=== PATIENT | male | born 1960 | race Caucasian/White ===

== ENCOUNTER 2019-10-12 06:37 | Day surgery (SDC) | payer OTHER ==
--- NOTE | 2019-10-11 15:08 | RAD REPORT ---
EXAM DESCRIPTION: RAD - Chest Pa And Lat (2 Views) - 10/11/2019 2:53 pm CLINICAL HISTORY: left heart cath Chest pain. COMPARISON: No comparisons FINDINGS: The lungs are clear. The heart is normal in size. No displaced fractures. IMPRESSION: No acute or concerning finding suspected.
[2019-10-11 15:16] LABS: Protime INR 0.96
[2019-10-11 15:18] LABS: Absolute Lymphocytes (CBC) 1.9 K/uL (0.7-4.9); Hematocrit 48.2 % (39.6-49.0); Lymphocytes % 25.8 % (15.3-44.8); MPV 10.4 fL (7.6-11.3); RBC Red Blood Cell Count 5.27 M/uL (4.33-5.43)
[2019-10-11 15:19] LABS: Potassium 4.8 mmol/L (3.5-5.1)
--- OUTSIDE RECORDS SUMMARY | 2019-10-12 06:39 | XMS REPORT | Summary of Care ---
:1960 Author Organization [facility] Address [address] [place] [address] Care Team Providers Name Role Phone Tor Lorenzo Primary Care Provider Reason for Visit Reason Comments Follow-up Diabetes Mellitus II Encounter Details Date Type Department Care Team Description 09/17/2019 Office Visit [facility] Diana White, Type 2 diabetes mellitus with complication, with long-term current use of insulin (Primary Dx); Endocrinology- MD Dyslipidemia; [address] Essential hypertension Professional Office [address] [address] [address] [place] [address] Allergies No Known Allergiesdocumented as of this encounter (statuses as of 09/17/2019) Medications Medication Sig Dispensed Refills Start Date End Date Status lancets (FREESTYLE Use as 200 Each 1 10/08/2016 Active LANCETS) 28 gauge directedSHAWNEE, Misc DX:E11.9 blood sugar Use as 300 Strip 3 01/05/2017 Active diagnostic directed (FREESTYLE LITE STRIPS) stripIndications: Type 2 diabetes mellitus without complication, without long-term current use of insulin Blood-Glucose Meter Use as 1 Kit 1 01/05/2017 Active (FREESTYLE LITE directed METER) KitIndications: Type 2 diabetes mellitus without complication, without long-term current use of insulin ramipril 10 mg Take 1 capsule 180 capsule 3 10/09/2018 Active capsuleIndications: by mouth 2 Essential (two) times hypertension daily. rosuvastatin Take 1 tablet 90 tablet 3 10/09/2018 Active (CRESTOR) 20 mg by mouth at tabletIndications: bedtime. Dyslipidemia sitagliptan-metform Take 1 tablet 180 tablet 3 03/21/2019 Active in (JANUMET) by mouth 2 50-1,000 mg per (two) times tabletIndications: daily with Type 2 diabetes meals. mellitus with complication, with long-term current use of insulin empagliflozin Take 1 90 tablet 3 03/21/2019 Active (JARDIANCE) 25 mg TAB-CAP/M2 by TabIndications: mouth daily. Type 2 diabetes mellitus with complication, with long-term current use of insulin FREESTYLE CLAYTON 14 1 Each daily. 1 Each 0 06/26/2019 Active DAY READER Misc DX:E11.8 flash glucose 1 Device every 6 Kit 3 09/17/2019 Active sensor (FREESTYLE 14 (fourteen) CLAYTON 14 DAY days. SENSOR) KitIndications: Type 2 diabetes mellitus with complication, with long-term current use of insulin FREESTYLE CLAYTON 14 1 Each every 2 Kit 5 06/26/2019 Discontinued DAY SENSOR Kit 14 (fourteen) 0 days. DX:E11.8 documented as of this encounter (statuses as of 09/17/2019) Active Problems Problem Noted Date Type 2 diabetes mellitus with complication, with long-term current use of insulin Vitamin D deficiency 02/09/2016 Essential hypertension 02/09/2016 HLD (hyperlipidemia) 02/09/2016 Metabolic syndrome X 02/09/2016 documented as of this encounter (statuses as of 09/17/2019) Social History Tobacco Use Types Packs/Day Years Used Date Never Assessed Sex Assigned at Date Recorded Not on file Job Start Date Occupation Industry Not on file Not on file Not on file Travel History Travel Start Travel End No recent travel history available. documented as of this encounter Last Filed Vital Signs Vital Sign Reading Time Taken Comments Blood Pressure 128/85 09/17/2019 11:16 AM HOPPER FEED[employer] Pulse 51 09/17/2019 11:16 AM HOPPER FEED[employer] Temperature - - Respiratory Rate 16 09/17/2019 11:16 AM HOPPER FEED[employer] Oxygen Saturation - - Inhaled Oxygen Concentration - - Weight 100.2 kg (221 lb) 09/17/2019 11:16 AM HOPPER FEED[employer] Height 182.9 cm (6') 09/17/2019 11:16 AM HOPPER FEED[employer] Body Mass Index 29.97 09/17/2019 11:16 AM HOPPER FEED[employer] documented in this encounter Progress Notes Diana White MD - 09/17/2019 11:00 AM CST chief complaint: Type 2 diabetes mellitus- follow up HPI: Taj Reeder is a 58 year old /White male who is here today for Diabetes MellitusType 2. ARABELLA was in 03/2019 with A1C at 6.8%. No major medical issues in interim. Patient was advised to continue diabetes regimen without changes. He sates that he forgot his freestyle clayton system as he ran out of them recently. T2DM history: Diagnosed with A1C > 14 in 10/2015, which has improved to 7s range in 2018 and stayed stable. Complications: hx of microalbuminuria which is now resolved. +CAD. Has hypertension and dyslipidemiaas well. DM regimen: Janumet 50-1000 mg bid, Jardiance 25 mg. Reports compliance Glucose readings: At goal 115-135 most time per recall . He did not bring log to be reviewed today Hypoglycemia: None Patient is compliant with diet and exercise Hypertension: Stopped Valsartan 320 mg due to recall. Takes ramipril 10 mg BID BP staying 140's systolic since then Proteinuria: Resolved in 06/2016. Positive urine proteins in 10/2015 Dyslipidemia: Reports compliance with rosuvastatin 20 mg. Denied side effects DIABETIC HEALTH MAINTENANCE Last Ophthalmology visit was 04/2019- no retinopathy. Patient on MARY/ARB therapy - Yes Patient on ASA therapy - no Patient on Statin/Fibrate therapy - Yes. Patient instructed about daily feet exams, last sensation exam was 09/2019 Patient has received Nutrition/Diet/Diabetes Education on 10/2015, and Referred Current Outpatient Medications: flash glucose sensor (FREESTYLE CLAYTON 14 DAY SENSOR) Kit, 1 Device every 14 (fourteen) days., Disp: 6 Kit, Rfl: 3 empagliflozin (JARDIANCE) 25 mg Tab, Take 1 TAB-CAP/M2 by mouth daily., Disp: 90 tablet, Rfl: 3 sitagliptan-metformin (JANUMET) 50-1,000 mg per tablet, Take 1 tablet by mouth 2 (two) times daily with meals., Disp: 180 tablet, Rfl: 3 FREESTYLE CLAYTON 14 DAY READER Misc, 1 Each daily. DX:E11.8, Disp: 1 Each, Rfl: 0 ramipril 10 mg capsule, Take 1 capsule by mouth 2 (two) times daily., Disp : 180 capsule, Rfl: 3 rosuvastatin (CRESTOR) 20 mg tablet, Take 1 tablet by mouth at bedtime., Disp: 90 tablet, Rfl: 3 blood sugar diagnostic (FREESTYLE LITE STRIPS) strip, Use as directed, Disp : 300 Strip, Rfl: 3 Blood-Glucose Meter (FREESTYLE LITE METER) Kit, Use as directed, Disp: 1 Kit, Rfl: 1 lancets (FREESTYLE LANCETS) 28 gauge Misc, Use as directed, TID, DX:E11.9, Disp: 200 Each, Rfl:1 HISTORY No past medical history on file. No past surgical history on file. No family history on file. Social History Socioeconomic History Marital status: Spouse name: Not on file Number of children: Not on file Years of education: Not on file Highest education level: Not on file Occupational History Not on file Social Needs Financial resource strain: Not on file Food insecurity: Worry: Not on file Inability: Not on file Transportation needs: Medical: Not on file Non-medical: Not on file Tobacco Use Smoking status: Not on file Substance and Sexual Activity Alcohol use: Not on file Drug use: Not on file Sexual activity: Not on file Lifestyle Physical activity: Days per week: Not on file Minutes per session: Not on file Stress: Not on file Relationships Social connections: Talks on phone: Not on file Gets together: Not on file Attends shinto service: Not on file Active member of club or organization: Not on file Attends meetings of clubs or organizations: Not on file Relationship status: Not on file Intimate partner violence: Fear of current or ex partner: Not on file Emotionally abused: Not on file Physically abused: Not on file Forced sexual activity: Not on file Other Topics Concern Not on file Social History Narrative Not on file REVIEW OF SYSTEMS Constitutional: weight stable, denies fatigue and hair loss Eyes: denies blurry vision, denies diplopia and denies pain. Neck: denies pain, denies swollen glands Cardiovascular: denies chest pain , denies irregular pulse and denies palpitations. Respiratory: denies dyspnea on exertion and denies shortness of breath. Gastrointestinal: denies abdominal pain, denies constipation and denies diarrhea. Genitourinary: denies burning and denies dysuria. Musculoskeletal: denies back pain, denies muscle pain and denies weakness. Skin: denies dry skin and denies hair changes. Neuro: denies numbness , denies tingling and denies tremor. Psych: negative. Endocrine: denies intolerance to cold or heat, denies polydipsia, denies polyphagia and denies polyuria. PHYSICAL EXAM Vitals: 09/17/19 1116 BP: 128/85 BP Location: Left arm Patient Position: Sitting BP CUFF SIZE: Adult Large Pulse: 51 Resp: 16 Weight: 221 lb (100.2 kg) Height: 6' (1.829 m) General: alert, oriented times three, no apparent distress, appearing age appropriate. Skin: skin color and turgor are normal Head: normocephalic, no masses, lesions, tenderness or abnormalities. Eyes: anicteric sclera, pupils are equally round and reactive to light. Neck: +acanthosis nigricans Thyroid: normal size and consistency to palaption Lungs: good diaphragmatic excursion, lungs clear to auscultation bilaterally. Heart: regular rate and rhythm, no murmurs, gallops or rubs. Abdomen: abdomen soft, non-tender, normal active bowel sounds, + obese. Neuro: unremarkable without focal findings. Extremities/Musculoskeletal: no cyanosis, no edema . Sensory exam of the foot is normal. Monofilament exam with sensation Right: 5/5 , Left: 5/5. callus present Ulcers Absent Peripheral pulses present 2+. DATA: No results found for: POCGLU CREATININE (mg/dL) Date Value 06/15/2017 0.80 CREATININE-Q (mg/dL) Date Value 10/28/2015 0.92 CHOL (mg/dL) Date Value 06/15/2017 128 CHOLESTEROL, TOTAL-Q (mg/dL) Date Value 10/28/2015 141 HDL CHOLESTEROL-Q (mg/dL) Date Value 10/28/2015 29 (L) HDL (mg/dL) Date Value 06/15/2017 37 (L) LDL CHOL (mg/dL) Date Value 06/15/2017 63 [id number] (mg/dL (calc)) Date Value 10/28/2015 71 TRIG (mg/dL) Date Value 06/15/2017 140 TRIGLYCERIDES-Q (mg/dL) Date Value 10/28/2015 207 (H) MICROAL/CR (ug/mmol creatinine) Date Value 06/15/2017 693 POCT HBA1C (%) Date Value 09/17/2019 7.0 (A) 03/21/2019 6.8 HEMOGLOBIN A1c-Q (% of total Hgb) Date Value 06/21/2016 7.9 (H) ASSESSMENT/PLAN ICD-10-CM ICD-9-CM 1. Type 2 diabetes mellitus with complication, with long-term current use of insulin E11.8 250.90 Z79.4 V58.67 2. Dyslipidemia E78.5 272.4 3. Essential hypertension I10 401.9 1. Type 2 diabetes mellitus with complication, with long-term current use of insulin -A1C (target=6-7%): 7.0 (10/03) --6.8(04/05)-->7%(09/2019) stable -glucose range: AM fasting at target per patient , without hypoglycemia -complication: hx of microalbuminuria -medication limitation: prefer oral medication -diet: compliant -exercise:active Plan -reinterated to check glucose daily alternating fasting and 2 hours post meals -urged compliance with diet/exercise -will continue current regimen: janumet 50-1000 BID and Jardiance 25 mg daily - Therapeutic lifestyle changes - annual labs prior to next visit Dyslipidemia Comment: No recent labs. Requested Plan: rosuvastatin (CRESTOR) 20 mg tablet, Essential hypertension BP in clinic was at target Plan Continue ramipril 10 mg capsule bid Orders Placed This Encounter Procedures POCT HEMOGLOBIN A1C TEST COMP. METABOLIC PANEL (36584) LIPID PANEL (36558)(TOTAL CHOLESTEROL, TRIGLYCERIDES, HDL) MICROALBUMIN URINE Diana White MD [employer] Endocrinology, Diabetes and Metabolism documented in this encounter Plan of Treatment Date Type Specialty Care Team Description 03/19/2020 Office Visit Endocrinology Diabetes & MajanoSally MD Metabolism [address] [place], [place] [phone] Name Type Priority Associated Diagnoses Order Schedule COMP. METABOLIC PANEL LAB Routine Type 2 diabetes mellitus Expected: 2019, (10868) with complication, with Expires: 09/16/2020 long-term current use of insulin LIPID PANEL (17866)(TOTAL LAB Routine Type 2 diabetes mellitus Expected: , CHOLESTEROL, with complication, with Expires: 09/16/2020 TRIGLYCERIDES, HDL) long-term current use of insulin MICROALBUMIN URINE LAB Routine Type 2 diabetes mellitus Expected: 2019, with complication, with Expires: 09/16/2020 long-term current use of insulin Health Maintenance Due Date Last Done Comments HEPATITIS C (HCV) SCREEN 1960 PNEUMOCOCCAL 0-64 YEARS COMBINED 1964 SERIES (1 of 1 - PPSV23) EYE EXAM 1968 DTaP,Tdap,and Td Vaccines (1 - 1969 Tdap) COLONOSCOPY 2008 Zoster Recombinant Vaccine 2008 (SHINGRIX) (1 of 2) CREATININE (SERUM) 06/15/2018 06/15/2017, 10/28/2015 LDL-C 06/15/2018 06/15/2017, 10/28/2015 URINE MICROALBUMIN 06/15/2018 06/15/2017, 06/21/2016, 10/28/2015 INFLUENZA VACCINE (#1) 2019 HgA1C 09/19/2019 03/21/2019, 10/09/2018, 03/08/2018, Additional history exists FOOT EXAM 03/21/2020 03/21/2019, 03/21/2019, 10/09/2018, Additional history exists documented as of this encounter Procedures Procedure Name Priority Date/Time Associated Diagnosis Comments POCT HEMOGLOBIN A1C Routine 09/17/2019 Type 2 diabetes Results for this TEST mellitus with procedure are in the complication, with results section. long-term current use of insulin documented in this encounter Results POCT HEMOGLOBIN A1C TEST (09/17/2019) POCT HBA1C 7.0 (A) 4 - 6 % Specimen Blood - CAPILLARY documented in this encounter Visit Diagnoses Diagnosis Type 2 diabetes mellitus with complication, with long-term current use of insulin - Primary Dyslipidemia Other and unspecified hyperlipidemia Essential hypertension Unspecified essential hypertension documented in this encounter documented as of this encounter
--- OUTSIDE RECORDS SUMMARY | 2019-10-12 06:39 | XMS REPORT | Summary of Care ---
:1960 Author Organization [facility] Address [address] [place] [address] Care Team Providers Name Role Phone Tor Lorenzo Primary Care Provider Encounter Details Date Type Department Care Team Description 09/17/2019 Letter (Out) [facility] [employer] Messages Doctor Unassigned, No [address] [facility] [place] [address] [address] [facility] [phone] [place] [address] Allergies No Known Allergiesdocumented as of this encounter (statuses as of 09/17/2019) Medications Medication Sig Dispensed Refills Start Date End Date Status lancets (FREESTYLE Use as directed, 200 Each 1 10/08/2016 Active LANCETS) 28 gauge Misc TID, DX:E11.9 blood sugar diagnostic Use as directed 300 Strip 3 01/05/2017 Active (FREESTYLE LITE STRIPS) stripIndications: Type 2 diabetes mellitus without complication, without long-term current use of insulin Blood-Glucose Meter Use as directed 1 Kit 1 01/05/2017 Active (FREESTYLE LITE METER) KitIndications: Type 2 diabetes mellitus without complication, without long-term current use of insulin ramipril 10 mg Take 1 capsule 180 capsule 3 10/09/2018 Active capsuleIndications: by mouth 2 (two) Essential hypertension times daily. rosuvastatin (CRESTOR) Take 1 tablet by 90 tablet 3 10/09/2018 Active 20 mg mouth at tabletIndications: bedtime. Dyslipidemia sitagliptan-metformin Take 1 tablet by 180 tablet 3 03/21/2019 Active (JANUMET) 50-1,000 mg mouth 2 (two) per tabletIndications: times daily with Type 2 diabetes meals. mellitus with complication, with long-term current use of insulin empagliflozin Take 1 90 tablet 3 03/21/2019 Active (JARDIANCE) 25 mg TAB-CAP/M2 by TabIndications: Type 2 mouth daily. diabetes mellitus with complication, with long-term current use of insulin FREESTYLE SALVADOR 14 DAY 1 Each daily. 1 Each 0 06/26/2019 Active READER Misc DX:E11.8 FREESTYLE SALVADOR 14 DAY 1 Each every 14 2 Kit 5 06/26/2019 Active SENSOR Kit (fourteen) days. DX:E11.8 documented as of this encounter [...] of this encounter Last Filed Vital Signs Not on filedocumented in this encounter Plan of Treatment Date Type Specialty Care Team Description 09/17/2019 Office Visit Endocrinology Diabetes & Diana White MD Arrived Metabolism [address] [place] [address] [phone] Health Maintenance Due Date Last Done Comments [...] history exists documented as of this encounter Results Not on filedocumented in this encounter Insurance Payer Benefit Plan / Group Subscriber ID Effective Dates Phone Address Type AETNA AETNA HMO GENERIC [id number] 2014-Present HMO documented as of this encounter
--- OUTSIDE RECORDS SUMMARY | 2019-10-12 06:39 | XMS REPORT | Summary of Care ---
:1960 Author Organization [facility] Address [address] [place] [address] Care Team Providers Name Role Phone Tor Lorenzo Primary Care Provider Encounter Details Date Type Department Care Team Description 03/21/2019 Orders Only [facility] Doctor Unassigned, No 301 [facility] Name [place] [phone] [place] [phone] Allergies No Known Allergiesdocumented as of this encounter (statuses as of 03/21/2019) Medications Medication Sig Dispensed Refills Start Date [...] complication, without long-term current use of insulin flash glucose scanning 1 Each daily. 1 Each 1 09/21/2017 Active reader (FREESTYLE SALVADOR READER) MiscIndications: Type 2 diabetes mellitus without complication, without long-term current use of insulin FREESTYLE SALVADOR 10 DAY USE 1 EVERY 10 10 Kit 0 09/25/2018 Active SENSOR KitIndications: DAYS Type 2 diabetes mellitus without complication, without long-term current use of insulin ramipril 10 mg Take 1 capsule 180 capsule 3 10/09/2018 Active capsuleIndications: by mouth 2 (two) Essential hypertension times daily. rosuvastatin (CRESTOR) Take 1 tablet by 90 tablet 3 10/09/2018 Active 20 mg mouth at tabletIndications: bedtime. Dyslipidemia empagliflozin Take 1 90 tablet 3 10/09/2018 Active (JARDIANCE) 25 mg TAB-CAP/M2 by TabIndications: Type 2 mouth daily. diabetes mellitus with complication, with long-term current use of insulin sitagliptan-metformin Take 1 tablet by 180 tablet 3 10/09/2018 Active (JANUMET) 50-1,000 mg mouth 2 (two) per tabletIndications: times daily with Type 2 diabetes meals. mellitus with complication, with long-term current use of insulin documented as of this encounter (statuses as of 03/21/2019) Active Problems Problem Noted Date Type 2 diabetes mellitus with complication, with long-term current use of insulin Vitamin D deficiency 02/09/2016 Essential hypertension 02/09/2016 HLD (hyperlipidemia) 02/09/2016 Metabolic syndrome X 02/09/2016 documented as of this encounter (statuses as of 03/21/2019) Social History Tobacco Use Types Packs/Day Years [...] Treatment Date Type Specialty Care Team Description 03/21/2019 Office Visit Endocrinology Diabetes & MajanoSally MD Metabolism [address] [place], [place] [phone] Health Maintenance Due Date Last Done Comments HEPATITIS C (HCV) SCREEN 1960 PNEUMOCOCCAL 0-64 YEARS COMBINED 1964 SERIES (1 of 1 - PPSV23) EYE EXAM 1968 DTaP,Tdap,and Td Vaccines (1 - 1977 Tdap) COLONOSCOPY 2008 Zoster Recombinant Vaccine 2008 (SHINGRIX) (1 of 2) CREATININE (SERUM) 06/15/2018 06/15/2017, 10/28/2015 LDL-C 06/15/2018 06/15/2017, 10/28/2015 URINE MICROALBUMIN 06/15/2018 06/15/2017, 06/21/2016, 10/28/2015 INFLUENZA VACCINE (#1) 2019 HgA1C 04/11/2019 10/09/2018, 03/08/2018, 09/21/2017, Additional history exists FOOT EXAM 10/10/2019 10/09/2018, 10/09/2018, 03/08/2018, Additional history exists documented as of this encounter Procedures Procedure Name Priority Date/Time Associated Diagnosis Comments NO SHOW OR MISSED Routine 03/21/2019 9:49 AM APPOINTMENT POLICY CDT ACKNOWLEDGEMENT documented in this encounter Results Not on filedocumented in this encounter Insurance Payer Benefit Plan / Group Subscriber ID Effective Dates Phone Address Type AETNA AETNA HMO GENERIC [id number] 2014-Present HMO documented as of this encounter
--- OUTSIDE RECORDS SUMMARY | 2019-10-12 06:39 | XMS REPORT | Summary of Care ---
:1960 Author Organization [facility] Address [address] [place] [address] Care Team Providers Name Role Phone Tor Lorenzo Primary Care Provider Reason for Visit Reason Comments Refill Request Encounter Details Date Type Department Care Team Description 03/21/2019 Refill [facility] Endocrinology- Yodit Keen MD Refill Request [place] Professional Office [address] [place] [address] Allergies No Known Allergiesdocumented as [...] Endocrinology Diabetes & MajanoSally MD Metabolism [address] [place], [place] [phone] Health Maintenance Due Date Last Done Comments [...] Phone Address Type AETNA AETNA HMO GENERIC [id number] 2014-Present HMO documented as of this encounter
--- OUTSIDE RECORDS SUMMARY | 2019-10-12 06:39 | XMS REPORT ---
:1960 Author Organization [facility] Address [address] [place] [address] Dr. Hagen [address] [place] [address] Care Team Providers Name Role Phone Unavailable Unavailable Unavailable Problems This patient has no known problems. Allergies, Adverse Reactions, Alerts This patient has no known allergies or adverse reactions. Medications This patient has no known medications.
--- OUTSIDE RECORDS SUMMARY | 2019-10-12 06:39 | XMS REPORT | Summary of Care ---
:1960 Author Organization [facility] Address [address] [place] [address] Care Team Providers Name Role Phone Tor Lorenzo Primary Care Provider Reason for Visit Reason Comments Follow-up Diabetes Mellitus II Encounter Details Date Type Department Care Team Description 09/17/2019 Office Visit [facility] Diana White, Type 2 diabetes mellitus with complication, with long-term current use of insulin (Primary Dx); Endocrinology- MD Dyslipidemia; [address] Essential hypertension Professional Office [address] [address] [address] [place] [address] Allergies No Known Allergiesdocumented as [...] Comments Blood Pressure 128/85 09/17/2019 11:16 AM SILK WORKER Pulse 51 09/17/2019 11:16 AM SILK WORKER Temperature - - Respiratory Rate 16 09/17/2019 11:16 AM SILK WORKER Oxygen Saturation - - Inhaled Oxygen Concentration - - Weight 100.2 kg (221 lb) 09/17/2019 11:16 AM SILK WORKER Height 182.9 cm (6') 09/17/2019 11:16 AM SILK WORKER Body Mass Index 29.97 09/17/2019 11:16 AM SILK WORKER documented in this encounter Progress Notes Diana [...] file Gets together: Not on file Attends roman catholic service: Not on file Active member of [...] LDL CHOL (mg/dL) Date Value 06/15/2017 63 [id number] (mg/dL (calc)) Date Value 10/28/2015 71 TRIG [...] POCT HEMOGLOBIN A1C TEST COMP. METABOLIC PANEL (21940) LIPID PANEL (26592)(TOTAL CHOLESTEROL, TRIGLYCERIDES, HDL) MICROALBUMIN URINE Diana White MD [employer] Endocrinology, Diabetes and Metabolism documented in this encounter Plan of Treatment Date Type Specialty Care Team Description 03/19/2020 Office Visit Endocrinology Diabetes & MajanoSally MD Metabolism [address] [place], [place] [phone] Name Type Priority Associated Diagnoses Order Schedule COMP. METABOLIC PANEL LAB Routine Type 2 diabetes mellitus Expected: 2019, (31037) with complication, with Expires: 09/16/2020 long-term current use of insulin LIPID PANEL (84832)(TOTAL LAB Routine Type 2 diabetes mellitus Expected: [...]
[2019-10-12] MEDS ORDERED: HEPA 1000U/500MLS 1,000 UNIT/500 ML BAG IV ONE (06:44)
[2019-10-12] MEDS ORDERED: LIDOCAINE 1% 20 ML MDV ONE (06:44)
[2019-10-12] MEDS ORDERED: NA CHLORIDE 0.9% 500 ML ONE (06:52)
[2019-10-12] MEDS ORDERED: MIDAZOLAM HCL 2 MG/2 ML INJ ONE (07:23)
[2019-10-12] MEDS ORDERED: FENTANYL CITR 100 MCG/2 ML ONE (07:23)
[2019-10-12] MEDS ORDERED: ATROPINE SULF 1 MG/10 ML SYR IV ONE (07:23)
[2019-10-12] MEDS ORDERED: NA CHLORIDE 0.9% 50 ML ONE (07:24)
[2019-10-12] MEDS ORDERED: ASPIRIN 81 MG CHEWABLE TABLET ONE (07:54)
[2019-10-12] MEDS ORDERED: PRASUGREL (EFFIENT) 10 MG TAB ONE (07:55)
[2019-10-12] MEDS ORDERED: ASPIRIN 325 MG TAB ONE (08:09)
[2019-10-12 10:45] VITALS: O2SAT 97
[2019-10-12 10:58] VITALS: BMI 29.9
[2019-10-12] MEDS ORDERED: ACETAMINOPHEN 325 MG TABLET PO PRN (11:14)
[2019-10-12] MEDS ORDERED: NITROGLYCERIN 0.4 MG/TAB SL PRN (11:14)
[2019-10-12] MEDS: NA CHLORIDE 0.9% 1,000 ML IV SCH (12:09)
--- NOTE | 2019-10-12 16:36 | OP ---
Date of Procedure: 10/12/2019 Surgeon: Reddy Donaldson MD [employer]: Michelle Anderson. Procedures: Left heart catheterization, selective coronary arteriogram, and primary left anterior de scending stent. Indication: Chest pain, positive stress test. History Of Present Illness: Mr. Reeder is a 58-year-old with history of diabetes, hypertension, dysli pidemia, came into my office approximately 4 days ago with chest pain that was rather worrisome, but during the stress test, he had positive chest pain ST changes and he had a positive stress test anter oseptal and apical ischemia, was scheduled urgently for catheterization this morning. Description Of Procedure: He was brought to the clinical laboratory director, prepped and draped in the routine sterile fashion. He was given Versed and fentanyl for IV sedation. A Ezra catheter left and right 6-Fren ch were used to select the left main and right main respectively. His RCA was normal, it was dominan t. His circumflex was small and nondominant. He had two 80% lesion in the proximal and distal circu mflex. The LAD, however, was a large vessel, approximately had some plaquing as well as an 80% to 90 % long lesion from the proximal LAD past the first diagonal. We decided to do an intervention on him . An XB LAD guide 3.5 with side hole was used to cannulate the left main. A BMW guidewire 0.014 ext ra-support extended length was used to cross the lesion successfully. Following that, a 2.5 x 20 mm stent was placed with 0% residual. This stent was dilated to 14 atmospheres. Intracoronary nitrogly cerin was used prior to the final injection. Angiogram of the right common femoral artery was normal and Angio-Seal was used to close the case. During the case, patient received Angiomax. After the c ase, he received 60 of Effient and an adult aspirin. There were no complications. Anesthesia: Total conscious sedation was 60 minutes. Estimated Blood Loss: 5 mL. Final Diagnoses: Coronary artery disease, status post successful primary left anterior descending st ent proximal. Severe circumflex disease that we will treat medically. The patient will remain in [facility] overnight and I will send him home tomorrow morning. I will encourage him to start Lipito r, Plavix, and aspirin in addition to his home medication. He will hold his metformin for 48 hours. NB/MODL Voice ID: [id number] Report ID: [id number]
[2019-10-13] MEDS: NA CHLORIDE 0.9% 1,000 ML IV SCH ×2 (01:42→02:35)
[2019-10-13 08:34] VITALS: BP 135/84; TEMP 98.2
[2019-10-13 08:56] LABS: Absolute Lymphocytes (CBC) 1.5 K/uL (0.7-4.9); Basophils % 0.5 % (0-1.3); Hematocrit 45.9 % (39.6-49.0); Lymphocytes % 22.6 % (15.3-44.8); MPV 10.3 fL (7.6-11.3); RBC Red Blood Cell Count 5.03 M/uL (4.33-5.43)
[2019-10-13 09:00] LABS: BUN Blood Urea Nitrogen 14 mg/dL (7-18); Bicarbonate 26 mmol/L (21-32); Glucose Level 208 mg/dL (74-106); Potassium 3.9 mmol/L (3.5-5.1); Sodium Level 140 mmol/L (136-145)
[2019-10-13 10:17] LABS: Platelet Estimate DECR
--- NOTE | 2019-10-13 15:51 | PN ---
Date of Progress Note: 10/13/2019 Subjective: Mr. Reeder was admitted to the hospital as an outpatient for a heart catheterization renu use of unstable angina and positive stress test. Catheterization showed severe disease in the circum flex, proximal and distal, but it was a nondominant vessel. He had about a 90% proximal LAD long les ion that extended from before the septal all the way to almost the second diagonal. A 2.5 x 20 Syner gy stent was placed with 0% residual. Overnight, the patient did well. He has no complaint. His rh ythm is normal. Physical Examination: Vital Signs: Stable. Chest: Clear. Cardiac: Revealed no murmurs, gallops, or rubs. Regular rhythm. Extremities: Revealed no clubbing, cyanosis, or edema. His right groin access showed no hematoma. Good pulses distally. Plan: The patient will be sent home today on aspirin, Plavix, Lipitor. He will hold his Janumet unt de tomorrow. Continue his Jardiance and continue his blood pressure medication. I will see him in t he office in 2 weeks. CONSUELO/CINDY Voice ID: [id number] Report ID: [id number]
--- NOTE | 2019-10-16 05:29 | EKG ---
Test Date: 2019-10-13 Test Time: 07:31:49 [employer]: AMY MEASUREMENT RESULTS: Intervals: Rate: 79 VT: 156 QRSD: 108 QT: 418 QTc: 479 [place]: P: 54 VT: 156 QRS: 54 T: 53 INTERPRETIVE STATEMENTS: Sinus rhythm with occasional premature ventricular complexes Otherwise normal ECG No previous ECG available for comparison Electronically Signed On 10-16-19 05:26:33 CDT by Reddy oDnaldson
== END 2019-10-13 10:15 | disposition home or self-care (01) ==
LOC: CCL 06:37 → 4TH 07:30 → CCL 10-13 10:15
DX: I25.110 Atherosclerotic heart disease of native coronary artery with unstable angina pectoris (principal); I10 Essential (primary) hypertension; E78.6 Lipoprotein deficiency; E78.5 Hyperlipidemia, unspecified; E10.9 Type 1 diabetes mellitus without complications; Z82.49 Family history of ischemic heart disease and other diseases of the circulatory system
CPT/HCPCS: 93005; 85025 ×2; 80048 ×2; 36415 ×2; 85049; 85610; 82947 ×4; 85347 ×2; 85730; 71046; 92928; 93454; C1893; C1760; C1725; C1877; J2250; J3010; J0583; J7040; J7030 ×2